=== PATIENT | female | born 1950 | race Caucasian/White ===

== ENCOUNTER 2017-03-27 14:28 | Emergency (ER) | payer OTHER ==
--- NOTE | 2017-03-27 15:04 | PDOC ---
Rapid Medical Evaluation Chief Complaint: Allergic Reaction Time Seen by Provider: 03/27/17 14:59 Medical Evaluation: Allergies Allergy/AdvReac Type Severity Reaction Status Date / Time No Known Allergies Allergy Verified 03/27/17 14:59 03/27/17 15:00 I have performed a brief in-person evaluation of this patient. The patient presents with a chief complaint of: generalized rash w/ pruritis x 1 month, using benadryl w/ no relief. No new inciting factors. H/o HTN, HLD and asthma Pertinent physical exam findings:multiple nevi on hand/arms (chronic), multiple eythematous macules to neck and L arm of unclear etiology I have ordered the following:nothing The patient will proceed to the ED for further evaluation.
[2017-03-27 15:05] VITALS: BP 147/95; PULSE 77; TEMP 98.6; BMI 25.2
--- NOTE | 2017-03-27 16:59 | PDOC ---
History of Present Illness - General Chief Complaint: Allergic Reaction Stated Complaint: ALLERGIC REACTION Time Seen by Provider: 03/27/17 14:59 History Source: Patient - History of Present Illness Initial Comments: 03/27/17 16:49 This is a 66-year-old woman with past medical history of HCV, aortic aneurysm, high blood pressure, type or lipidemia who presents to the emergency department with 1 month of rash to upper extremities and neck. Patient states she saw her primary doctor possibly one month ago who gave her 2 doses of an unknown medication which help relieve symptoms. Patient states the rash improved after those 2 doses and have been benign since that time. Starting yesterday the rash became itchy at the top of the chest and on the neck. Patient has been itching since that time. She has taken Benadryl with minimal relief. She denies any change in soaps, shampoos, foods, medications, lotions, conditioners, fabric softeners, laundry detergent. Past History - Past Medical History Allergies/Adverse Reactions: Allergies Allergy/AdvReac Type Severity Reaction Status Date / Time No Known Allergies Allergy Verified 03/27/17 15:00 Home Medications: Ambulatory Orders Losartan Potassium 50 mg PO ASDIR 03/27/17 Mometasone Furoate 0.1% Tp Oin [Elocon (Non Formulary)] 15 gm NR TID #1 tube Asthma: Yes COPD: No HTN: Yes Hypercholesterolemia: Yes - Surgical History Abdominal Surgery: Yes - Immunization History Immunization Up to Date: Yes - Suicide/Smoking/Psychosocial Hx Smoking History: Never smoked Have you smoked in the past 12 months: No Information on smoking cessation initiated: No Hx Alcohol Use: No Drug/Substance Use Hx: No Substance Use Type: None Review of Systems - Review of Systems Able to Perform ROS?: Yes Is the patient limited Salvadorean proficient: No Constitutional: No: Symptoms Reported HEENTM: No: Symptoms Reported Respiratory: No: Symptoms reported Cardiac (ROS): No: Symptoms Reported ABD/GI: No: Symptoms Reported : No: Symptoms Reported Musculoskeletal: No: Symptoms Reported Integumentary: Yes: See HPI Neurological: No: Symptoms reported Endocrine: No: Symptoms Reported Hematologic/Lymphatic: No: Symptoms Reported *Physical Exam - Vital Signs Last Vital Signs Temp Pulse Resp BP Pulse Ox 98.6 F 77 16 147/95 98 03/27/17 15:01 03/27/17 15:01 03/27/17 15:01 03/27/17 15:01 03/27/17 15:01 - Physical Exam General Appearance: Yes: Appropriately Dressed. No: Apparent Distress HEENT: positive: Normal ENT Inspection Neck: positive: Trachea midline, Supple. negative: Stridor Respiratory/Chest: positive: Lungs Clear, Normal Breath Sounds. negative: Respiratory Distress, Accessory Muscle Use Cardiovascular: positive: Regular Rhythm, Regular Rate. negative: Murmur Gastrointestinal/Abdominal: positive: Normal Bowel Sounds, Soft. negative: Tender Musculoskeletal: positive: Normal Inspection Extremity: positive: Other (multiple sporadic erythematous macular lesions noted to upper and lower extremities and at base of the neck.) Integumentary: positive: Rash (multiple sporadic erythematous macular lesions noted to upper and lower extremities and at base of the neck.) Neurologic: positive: Fully Oriented, Alert, Normal Mood/Affect, Normal Response , Motor Strength 5/5 Medical Decision Making - Medical Decision Making 03/27/17 17:01 A/P: 66-year-old woman with multiple medical problems presenting today with acute on chronic rash to upper extremities chest and neck. No stridor noted. Lungs clear to auscultation bilaterally. Multiple sporadic erythematous macules noted to upper extremities and base of neck. Rx for Mometasone ointment Discharge *DC/Admit/Observation/Transfer Diagnosis at time of Disposition: Rash - Discharge Dispostion Disposition: HOME Condition at time of disposition: Stable Admit: No - Prescriptions Prescriptions: Mometasone Furoate 0.1% Tp Oin [Elocon (Non Formulary)] 15 gm NR TID #1 tube - Referrals - Patient Instructions Additional Instructions: Apply mometasone cream to rash 3 times a day. Make an appointment with her primary doctor for further evaluation if symptoms do not resolve within the next 4 days. You may take Benadryl 25 mg every 6 hours as needed for itching. Return to emergency department for changes in her voice, difficulty breathing, drooling, wheezing, or any other concerns. Thank you very much for choosing us to provide your emergent healthcare needs. Aplique crema de mometasona a la erupcin 3 veces al da. Maya renetta cara con crow mdico primario para renetta evaluacin adicional si los s ntomas no se resuelven en los prximos 4 [place]. Puede jose Benadryl 25 mg cada 6 horas segn sea necesario para la picazn. Regrese al departamento de emergencias por cambios en crow voz, dificultad para respirar, babeo, sibilancia o cualquier otra preocupacin. Muchas luis a por elegirnos para brindarle iesha necesidades emergentes de atenci n mdica. - Post Discharge Activity
== END 2017-03-27 17:10 | disposition home or self-care (01) ==
LOC: JERFT 14:28
DX: R21 Rash and other nonspecific skin eruption (principal); J45.909 Unspecified asthma, uncomplicated; I10 Essential (primary) hypertension; E78.00 Pure hypercholesterolemia, unspecified
CPT/HCPCS: 99281-25